=== PATIENT | female | born 1975 | race Caucasian/White ===

== ENCOUNTER → 2018-10-10 | Day surgery (SDC) | payer MEDICAID ==
[2018-10-09 09:34] LABS: Urine WBC None Seen /hpf (0 - 5)
[2018-10-09 09:48] LABS: Basophils # (auto) 0.1 uL; Eosinophils # (auto) 0 uL; Lymphocytes # (auto) 1.4 uL; Neutrophils # (auto) 2.1 uL; Neutrophils % (auto) 52.3 % (37.0-80.0); Urine Bacteria FEW /hpf (None Seen); Urine Blood Negative /uL (Negative); Urine Specific Gravity 1.002 (1.001-1.035)
[2018-10-09 09:50] LABS: Basophils % (auto) 2.2 % (0.0-2.0); Eosinophils % (auto) 0.7 % (0.0-7.0); Hematocrit 32.2 % (36.0-46.0); Lymphocytes % (auto) 33.4 % (10.0-50.0); Mean Corpuscular Hemoglobin 22.1 pg (28.0-32.0); Mean Corpuscular Hgb Conc. 31.2 g/dL (32.0-36.0); Monocytes # (auto) 0.5 uL; Monocytes % (auto) 11.4 % (0.0-12.0); Nucleated Red Blood Cells % 0.1 %; Platelet Count (auto) 380 10^3/uL (140-450); Red Blood Cells 4.53 10^6/uL (4.0-5.20); Red Cell Distribution Width 18.7 % (11.8-14.3); White Blood Cell 4.1 10^3/uL (4.4-10.8)
[2018-10-09 09:54] LABS: INR 0.96 (0.9-1.15); Partial Thromboplastin Time 24.4 sec (23.78-33.04); Prothrombin Time 10.3 sec (9.27-12.13)
[2018-10-09 09:57] LABS: BUN/Creatinine Ratio 5.6; Potassium 4.3 mmol/L (3.5-5.1)
[2018-10-09 09:59] LABS: Bilirubin, Total 0.3 mg/dL (0.2-1.0)
[~2018-10-10] VITALS: Ht 172.7 cm; Wt 63.5 kg
[~2018-10-10] MED LIST: CETI10TA93 PO; CLINDAMYCIN 600MG IV 50 ML IV ONE; IBUP800T24 PO; LAMO200T2 PO; MIDAZOLAM HCL 1MG/1ML-2 ML VIAL ONE; ceFAZolin 1GM/50ML 0 ML IV ONE; fentaNYL CITRATE 100 MCG/2 ML VL ONE
[2018-10-10 10:12] VITALS: BP 139/94
== END | disposition home or self-care (01) ==
LOC: SUR 07:18
PROVIDERS: ATTEND Podiatrist Foot & Ankle Surgery
DX: M72.2 Plantar fascial fibromatosis (principal); F20.89 Other schizophrenia; F31.9 Bipolar disorder, unspecified; F41.9 Anxiety disorder, unspecified; D64.9 Anemia, unspecified; Z88.0 Allergy status to penicillin; Z88.8 Allergy status to other drugs, medicaments and biological substances; Z98.51 Tubal ligation status; Z98.890 Other specified postprocedural states
CPT/HCPCS: 28060; J3010; V2790; 36415; 80053; 81001; 84702; 85025; 85610; 85730; J0690; J2250; J3490

== ENCOUNTER 2018-11-14 06:13 | Day surgery (SDC) | payer MEDICAID ==
[2018-11-12 12:10] LABS: Basophils # (auto) 0.1 uL; Eosinophils # (auto) 0 uL; Hemoglobin 9.8 g/dL (12.2-16.2); Lymphocytes # (auto) 1.5 uL; Mean Corpuscular Hgb Conc. 29.7 g/dL (32.0-36.0); Neutrophils # (auto) 3.3 uL
[2018-11-12 12:16] LABS: Basophils % (auto) 1.6 % (0.0-2.0); Eosinophils % (auto) 0.6 % (0.0-7.0); Hematocrit 32.9 % (36.0-46.0); Lymphocytes % (auto) 28.3 % (10.0-50.0); Mean Corpuscular Hemoglobin 21.5 pg (28.0-32.0); Mean Corpuscular Volume 72.3 fL (80.0-100.0); Monocytes # (auto) 0.3 uL; Neutrophils % (auto) 63.5 % (37.0-80.0); Platelet Count (auto) 398 10^3/uL (140-450); Red Blood Cells 4.55 10^6/uL (4.0-5.20); Red Cell Distribution Width 19.5 % (11.8-14.3); White Blood Cell 5.2 10^3/uL (4.4-10.8)
[2018-11-12 12:24] LABS: INR 0.93 (0.9-1.15); Partial Thromboplastin Time 23.4 sec (23.78-33.04)
[2018-11-12 12:36] LABS: Calcium 8.9 mg/dL (8.5-10.1); Potassium 4.2 mmol/L (3.5-5.1)
[2018-11-12 12:39] LABS: Bilirubin, Total 0.2 mg/dL (0.2-1.0); Total Protein 7.4 g/dL (6.4-8.2)
[~2018-11-14] VITALS: Ht 172.7 cm; Wt 62.6 kg
[~2018-11-14 06:13] MED LIST changes: -CLINDAMYCIN 600MG IV 50 ML IV ONE; +DIPH25CA66 PO; +METO25TA62 PO; -MIDAZOLAM HCL 1MG/1ML-2 ML VIAL ONE; +RANI150C11 PO; +RIZA10TA12 PO; -ceFAZolin 1GM/50ML 0 ML IV ONE; -fentaNYL CITRATE 100 MCG/2 ML VL ONE
[2018-11-14] MEDS ORDERED: CLINDAMYCIN 600MG IV 50 ML IV ONE (06:36)
[2018-11-14] MEDS ORDERED: NEOMYCIN-BACITRACIN-POLYM 15GM TOP OINT TOP ONE (07:08)
[2018-11-14] MEDS ORDERED: BUPIVACAINE 0.75% INJ 10ML MPV SDV IJ ONE (07:08)
[2018-11-14] MEDS ORDERED: MIDAZOLAM HCL 1MG/1ML-2 ML VIAL ONE (07:20)
[2018-11-14] MEDS ORDERED: fentaNYL CITRATE 100 MCG/2 ML VL ONE (07:20)
[2018-11-14] MEDS ORDERED: PROPOFOL 10 MG/ML 20 ML IV ONE (07:20)
[2018-11-14] MEDS ORDERED: ONDANSETRON HCL 4 MG/2 ML VIAL IV ONE (07:45)
[2018-11-14] MEDS ORDERED: hydrALAZINE HCL 20 MG/ML VL IV PRN (07:45)
[2018-11-14] MEDS ORDERED: fentaNYL CITRATE 100 MCG/2 ML VL IV ONE (08:00)
[2018-11-14 08:27] VITALS: BP 133/83
== END 2018-11-14 09:01 | disposition home or self-care (01) ==
LOC: SUR 06:13
PROVIDERS: ATTEND Podiatrist Foot & Ankle Surgery
DX: M20.11 Hallux valgus (acquired), right foot (principal); M21.611 Bunion of right foot; D64.9 Anemia, unspecified; I10 Essential (primary) hypertension; K21.9 Gastro-esophageal reflux disease without esophagitis; Z88.0 Allergy status to penicillin; Z88.8 Allergy status to other drugs, medicaments and biological substances; Z79.899 Other long term (current) drug therapy
CPT/HCPCS: 28296; 36415; 73620; 80053; 84702; 85025; 85610; 85730; C1713; C1769; J2250; J2704; J3010; J3490

== ENCOUNTER → 2019-01-02 | Day surgery (SDC) | payer MEDICAID ==
[2018-12-28 10:45] LABS: Basophils # (auto) 0.1 uL; Basophils % (auto) 2.3 % (0.0-2.0); Neutrophils # (auto) 2.9 uL; Nucleated Red Blood Cells % 0.1 %; White Blood Cell 5.3 10^3/uL (4.4-10.8)
[2018-12-28 10:46] LABS: Eosinophils # (auto) 0.1 uL; Hematocrit 33.3 % (36.0-46.0); Lymphocytes # (auto) 1.9 uL; Lymphocytes % (auto) 35.4 % (10.0-50.0); Mean Corpuscular Hemoglobin 21.4 pg (28.0-32.0); Mean Corpuscular Volume 71.2 fL (80.0-100.0); Monocytes # (auto) 0.3 uL; Monocytes % (auto) 6.3 % (0.0-12.0); Platelet Count (auto) 452 10^3/uL (140-450); Red Blood Cells 4.68 10^6/uL (4.0-5.20); Red Cell Distribution Width 18.9 % (11.8-14.3)
[2018-12-28 10:56] LABS: INR 0.93 (0.9-1.15); Partial Thromboplastin Time 24.7 sec (23.78-33.04)
[2018-12-28 11:02] LABS: Urine Bacteria NONE SEEN /hpf (None Seen); Urine Blood Negative /uL (Negative); Urine WBC <1 /hpf (0 - 5)
[2018-12-28 11:05] LABS: Albumin 4.3 g/dL (3.4-5.0); Calcium 8.9 mg/dL (8.5-10.1); Potassium 4.5 mmol/L (3.5-5.1)
[2018-12-28 11:08] LABS: BUN/Creatinine Ratio 9.4; Bilirubin, Total 0.3 mg/dL (0.2-1.0); Total Protein 7.9 g/dL (6.4-8.2)
[~2019-01-02] VITALS: Ht 172.7 cm; Wt 63.5 kg
[~2019-01-02] MED LIST changes: -CETI10TA93 PO; +CLINDAMYCIN 600MG IV 50 ML IV ONE; -DIPH25CA66 PO; +FLUT1SPR5; +GLYCOPYRROLATE 0.2 MG/ML 1ML VIAL ONE; +HYDROmorphone HCL 2 MG/ML VL IV PRN; +KETAMINE HCL 1 ML ONE; +LIDOCAINE 1% HCL (LOCAL ANESTH.) INJ 20ML MDV ONE; +METOCLOPRAMIDE HCL 5MG/ml INJ 2ml VIAL ONE; +MIDAZOLAM HCL 1MG/1ML-2 ML VIAL ONE; +NALOXONE HCL 0.4 MG/ML VIAL IV PRN; +NEOMYCIN-BACITRACIN-POLYM 15GM TOP OINT TOP ONE; +ONDANSETRON HCL 4 MG/2 ML VIAL IV ONE; +PROPOFOL 10 MG/ML 20 ML IV ONE; -RANI150C11 PO; -RIZA10TA12 PO; +ROPIVACAINE 0.5% (5MG/ML) 20ML AMPULE IJ ONE; +SUCCINYLCHOLINE CHLORIDE 20 MG/ML 10ML VIAL IV ONE; +diphenhdrAMINE HCL 50 MG/1 ML VL ONE; +fentaNYL CITRATE 100 MCG/2 ML VL ONE
[2019-01-02 08:46] VITALS: BP 124/87
== END | disposition home or self-care (01) ==
LOC: SUR 06:09
PROVIDERS: ATTEND Podiatrist Foot & Ankle Surgery
DX: M20.12 Hallux valgus (acquired), left foot (principal); M21.612 Bunion of left foot; G43.909 Migraine, unspecified, not intractable, without status migrainosus; I10 Essential (primary) hypertension; D64.9 Anemia, unspecified; F20.9 Schizophrenia, unspecified; F32.9 Major depressive disorder, single episode, unspecified; F41.9 Anxiety disorder, unspecified; Z88.8 Allergy status to other drugs, medicaments and biological substances; Z88.0 Allergy status to penicillin; Z79.899 Other long term (current) drug therapy; Z98.890 Other specified postprocedural states
CPT/HCPCS: 28296; 36415; 73620; 80053; 81001; 84702; 85025; 85610; 85730; C1713; C1769; J0330; J1200; J2001; J2250; J2704; J2765; J2795; J3010; J3490; L3260